=== PATIENT | female | born 1970 | race African-American/Black ===

== ENCOUNTER 2019-03-06 06:30 | Day surgery (SDC) | payer BC ==
[~2019-03-06] VITALS: Ht 160 cm; Wt 98.0 kg
[2019-03-06] MEDS ORDERED: CEFAZOLIN SOD 2 GM in D5W 50 ML IV ONE (07:00)
[2019-03-06] MEDS ORDERED: fentaNYL CITRATE/PF 100 MCG/2 ML AMP IVP PRN ×2 (07:30)
[2019-03-06] MEDS ORDERED: ONDANSETRON HCL 4 MG/2 ML VIAL IVP PRN ×2 (07:30→09:00)
[2019-03-06] MEDS ORDERED: MIDAZOLAM HCL 5 MG/ML VIAL (VERSED) IV ONE (08:50)
[2019-03-06] MEDS ORDERED: NS IRRIG SOLN 5000 ML IR ONE (08:50)
[2019-03-06] MEDS ORDERED: fentaNYL CITRATE/PF 100 MCG/2 ML AMP ONE ×2 (08:50→09:13)
[2019-03-06] MEDS ORDERED: NS IRRIG SOLN 1000 ML IR ONE (08:50)
[2019-03-06] MEDS ORDERED: NS 1000 ML IV.SOLN IV ONE (08:50)
[2019-03-06] MEDS ORDERED: SEVOFLURANE 15 MIN GAS INH ONE (08:50)
[2019-03-06] MEDS ORDERED: PROPOFOL 200MG/ 20ML VIAL (DIPRIVAN) IV ONE (08:50)
[2019-03-06] MEDS ORDERED: HYDROcodone/ACETAMIN 5-325 MG TAB (NORCO/ VICODIN) PO PRN (09:00)
[2019-03-06] MEDS ORDERED: OXYCODONE/ACETAMINOPHEN 5-325 TABLET PO PRN (09:00)
[2019-03-06 09:40] VITALS: BP_SYST 138
== END 2019-03-06 10:45 | disposition home or self-care (01) ==
LOC: SDS 06:30 → SMU 06:30 → SDS 10:45
PROVIDERS: ATTEND Specialist
DX: N92.0 Excessive and frequent menstruation with regular cycle (principal); N94.6 Dysmenorrhea, unspecified; D26.0 Other benign neoplasm of cervix uteri; D50.0 Iron deficiency anemia secondary to blood loss (chronic); E66.3 Overweight; Z68.38 Body mass index [BMI] 38.0-38.9, adult
CPT/HCPCS: 58561; 88305; C1819; J0690; J2250; J2704; J3010; J7030; J7060; J7120

== ENCOUNTER 2023-05-10 19:14 | Emergency (ER) | payer BC ==
[~2023-05-10] VITALS: Ht 160 cm; Wt 92.5 kg
[2023-05-10 19:21] VITALS: BP_SYST 138; PULSE 57; RESP 20; TEMP 97.5; O2SAT 98
[2023-05-10 20:08] LABS: CALCIUM 9.1 mg/dL (8.4-11.0); CREATININE 0.88 mg/dL (0.55-1.30); POTASSIUM 3.9 mmol/L (3.5-5.1)
[2023-05-10 20:10] LABS: BASOPHILS # (AUTO) 0.1 K/uL (0.0-0.2); BASOPHILS % (AUTO) 0.6 % (0.0-2.0); EOSINOPHILS # (AUTO) 0.3 K/uL (0.0-0.4); EOSINOPHILS % (AUTO) 3.6 % (0.0-4.0); HEMATOCRIT 36.5 % (36-48); HEMOGLOBIN 12.4 g/dL (12.0-16.0); LYMPHOCYTES # (AUTO) 2.3 K/uL (1.0-5.5); LYMPHOCYTES % (AUTO) 28.3 % (20.5-51.5); MEAN CORPUSCULAR HEMOGLOBIN 29 pg (27-31); MEAN CORPUSCULAR HGB CONC 34 % (32-36); MEAN CORPUSCULAR VOLUME 85 fL (79.0-98.0); MONOCYTES # (AUTO) 0.5 K/uL (0.0-1.0); MONOCYTES % (AUTO) 5.6 % (1.7-9.3); NEUTROPHILS # (AUTO) 5.1 K/uL (1.8-7.7); NEUTROPHILS % (AUTO) 61.9 % (40.0-70.0); PLATELET COUNT (AUTO) 304 K/uL (130-430); RED BLOOD CELL COUNT(AUTO) 4.28 MIL/uL (4.2-6.2); WHITE BLOOD COUNT (AUTO) 8.2 K/uL (4.8-10.8)
[2023-05-10] MEDS ORDERED: CLIN-142 PO (20:54)
[2023-05-10] MEDS ORDERED: IBUP-1969 PO (20:54)
[2023-05-10 21:00] VITALS: BP_SYST 150; PULSE 51; RESP 16; TEMP 97.1; O2SAT 97
[2023-05-10] MEDS: CLINDAMYCIN HCL 150 MG CAPSULE PO ONE (21:24)
== END 2023-05-10 21:00 | disposition home or self-care (01) ==
LOC: SED 19:14
DX: L03.211 Cellulitis of face (principal); Z79.899 Other long term (current) drug therapy
CPT/HCPCS: 80048; 83605; 85025; 99283